=== PATIENT | female | born 1945 | race Caucasian/White ===

== ENCOUNTER 2016-12-19 07:31 | Inpatient (IN) | payer OTHER, BC ==
[~2016-12-19] VITALS: Ht 165.1 cm; Wt 80.5 kg
[~2016-12-19 07:31] MED LIST: ADULT LOW STREN81 M2 PO; ALBUTEROL17 GM IH; ALPRAZOLAM0.25 M2 PO; Amoxicillin PO; Cardizem CD,Cartia X PO; DILTIAZEM 24HR240 MG PO; DIOVAN HCT 31 TABLE1 PO; EQL CALCIUM PO; FENOFIBRATE160 M1 PO; FOLIC ACID1 MG PO; GLUCOPHAGE500 MG PO; KEFLEX500 MG PO; LASIX20 MG PO; LEVAQUIN500 MG PO; LIPITOR40 MG PO; LOFIBRA,TRIGLI160 MG PO; METFORMIN HCL500 MG PO; METHOTREXATE2.5 MG PO; METOPROLOL SUCC25 MG PO; NORVASC10 MG PO; PANTOPRAZOLE SO40 MG PO; PLAVIX75 MG PO; PRADAXA150 MG PO; PROTONIX40 MG PO; RANITIDINE HCL150 M1 PO; SPIRIVA1 INHALATI IH; TOPROL XL100 MG PO; TRAMADOL HCL50 MG PO; TYLENOL325 MG PR; VITAMIN D35000 UNIT PO; ZESTORETIC,P1 TABLE2 PO
[2016-12-19 08:39] LABS: ADD MIUA? YES; BILIRUBIN NEGATIVE; BLOOD NEGATIVE; COLOR YELLOW ((YELLOW)); GLUCOSE (STRIP) NEGATIVE; KETONES NEGATIVE; LEUKOCYTES MODERATE; NITRITE POSITIVE; PROTEIN (STRIP) NEGATIVE; SPECIFIC GRAVITY 1.011 (1.000-1.030); UROBILINOGEN 0.2 MG/DL (0.2-1.0)
[2016-12-19 08:53] LABS: HEMATOCRIT 35.2 % (36.0-46.0); MCH 29.5 PG (29.0-34.0); MCHC 32.4 G/DL (30.0-36.0); MEAN PLAT.VOLUME 9.3 uM^3 (9.5-12.4); PLATELET COUNT 267 K/uL (156-360); RBC DIS.WIDTH-CV 16.7 % (11.8-14.6); RBC DIS.WIDTH-SD 53.5 % (39-53); RED BLOOD COUNT 3.87 M/uL (3.80-5.20); WHITE BLOOD COUNT 10.5 K/uL (4.1-10.2)
[2016-12-19 09:03] LABS: INTER. NORMALIZED RATIO 1.1; PROTHROMBIN TIME 11.1 (9.2-11.2); PTT 28.1 (25-32)
[2016-12-19 09:04] LABS: CHLORIDE 103 mEq/L (99-109); POTASSIUM 4.8 mEq/L (3.7-5.4)
[2016-12-19 09:05] LABS: SODIUM 138 mEq/L (136-147)
[2016-12-19 09:06] LABS: GLUCOSE 146 mg/dL (70-99)
[2016-12-19 09:08] LABS: ANION GAP 7 MEQ/L (2-14)
[2016-12-19 09:10] LABS: GFR ESTIMATE (CALCULATED) 58 mL/min/
[2016-12-19 09:11] LABS: UREA NITROGEN (BUN) 32 mg/dL (9-23)
[2016-12-19 09:14] LABS: TROP-I INTERPRETATION NEGATIVE; TROPONIN-I 0.01 ng/mL (0.0-0.30)
[2016-12-19] MEDS ORDERED: FOLIC ACID1 MG PO (09:25)
[2016-12-19] MEDS ORDERED: DIOVAN HCT 31 TABLE1 PO (09:25)
[2016-12-19] MEDS ORDERED: LO-DOSE ASPIRIN81 M2 PO (09:25)
[2016-12-19] MEDS ORDERED: ADVAIR 100/501 DISK IH (09:25)
[2016-12-19] MEDS ORDERED: METHOTREXATE2.5 MG PO (09:26)
[2016-12-19] MEDS ORDERED: LIPITOR40 MG PO (09:26)
[2016-12-19] MEDS ORDERED: PROAIR HFA8.5 GM IH (09:27)
[2016-12-19] MEDS ORDERED: MONTELUKAST SOD10 MG PO (09:27)
[2016-12-19] MEDS ORDERED: SPIRIVA1 INHALATI IH (09:28)
[2016-12-19] MEDS ORDERED: TYLENOL ARTHRI650 MG PO (09:28)
[2016-12-19] MEDS ORDERED: CARDIZEM CD,CA240 MG PO (09:29)
[2016-12-19] MEDS ORDERED: FLUTICASONE PRO60 ML TP (09:29)
[2016-12-19] MEDS ORDERED: ESCITALOPRAM OX10 MG PO (09:29)
[2016-12-19] MEDS ORDERED: ELIQUIS5 MG PO (09:30)
[2016-12-19] MEDS ORDERED: PROTONIX40 MG PO (09:30)
[2016-12-19] MEDS ORDERED: METOPROLOL SUC100 MG PO (09:30)
[2016-12-19] MEDS ORDERED: METFORMIN HCL500 MG PO (09:31)
[2016-12-19] MEDS ORDERED: FORTESTA60 GM TD (09:31)
[2016-12-19 09:49] LABS: MUCUS NONE SEEN /LPF
[2016-12-19 09:53] LABS: RED BLOOD CELLS 0-5 /HPF (0-5)
[2016-12-19 09:54] LABS: BACTERIA 2+ /HPF; EPITHELIAL CELLS RARE /HPF; WHITE BLOOD CELLS 40-50 /HPF (0-5); WHITE CELL CASTS 0-5 /LPF
[2016-12-19] MEDS ORDERED: FORTEO20 MICROGR SC (10:29)
[2016-12-19] MEDS ORDERED: SPIRIVA RESPIMAT4 GM IH (10:35)
[2016-12-19] MEDS ORDERED: ERGOCALCIF50000 UNIT PO (10:37)
[2016-12-19 15:41] LABS: POINT-OF-CARE METER ID UU14149397
[2016-12-19 18:10] VITALS: BP 103/56
[2016-12-19 20:10] VITALS: BP 162/70
[2016-12-19 21:37] LABS: POINT-OF-CARE METER ID UU14149397
[2016-12-19 23:59] VITALS: BP 140/63
[2016-12-20 04:30] VITALS: BP 137/65
[2016-12-20 06:31] LABS: POINT-OF-CARE METER ID UU14188577
[2016-12-20 07:11] LABS: HEMATOCRIT 30.4 % (36.0-46.0); MCH 30.7 PG (29.0-34.0); MCHC 32.6 G/DL (30.0-36.0); MCV 94.1 FL (83-99); MEAN PLAT.VOLUME 9.9 uM^3 (9.5-12.4); PLATELET COUNT 230 K/uL (156-360); RBC DIS.WIDTH-CV 16.8 % (11.8-14.6); RBC DIS.WIDTH-SD 57.1 % (39-53); RED BLOOD COUNT 3.23 M/uL (3.80-5.20); WHITE BLOOD COUNT 6.5 K/uL (4.1-10.2)
[2016-12-20 07:52] LABS: ANION GAP 11 MEQ/L (2-14); CHLORIDE 102 MEQ/L (99-109); GFR ESTIMATE (CALCULATED) > 59 mL/min/; GLUCOSE 110 mg/dL (70-99); POTASSIUM 4.4 MEQ/L (3.7-5.4); SAMPLE HEMOLYSIS CHECK 0; SAMPLE ICTERIC CHECK 0; SAMPLE LIPEMIA CHECK 0; SODIUM 134 MEQ/L (136-147); UREA NITROGEN (BUN) 21 mg/dL (9-23)
[2016-12-20 08:04] VITALS: BP 123/60
[2016-12-20 11:49] VITALS: BP 128/66
[2016-12-20 11:51] LABS: POINT-OF-CARE METER ID UU14188577
[2016-12-20 15:49] VITALS: BP 118/59
[2016-12-20 20:00] VITALS: BP 141/61
[2016-12-20 21:44] LABS: POINT-OF-CARE METER ID UU14188577
[2016-12-20 23:53] VITALS: BP 128/63
[2016-12-21] VITALS (7 sets, daily range): BP systolic 117–150; BP diastolic 59–66
[2016-12-21 06:29] LABS: POINT-OF-CARE METER ID UU14149397
[2016-12-21 07:34] LABS: HEMATOCRIT 29.8 % (36.0-46.0); MCH 30.2 PG (29.0-34.0); MCHC 32.6 G/DL (30.0-36.0); MCV 92.8 FL (83-99); MEAN PLAT.VOLUME 9.9 uM^3 (9.5-12.4); PLATELET COUNT 199 K/uL (156-360); RBC DIS.WIDTH-CV 16.7 % (11.8-14.6); RBC DIS.WIDTH-SD 55.6 % (39-53); RED BLOOD COUNT 3.21 M/uL (3.80-5.20); WHITE BLOOD COUNT 9.8 K/uL (4.1-10.2)
[2016-12-21 07:52] LABS: ANION GAP 8 MEQ/L (2-14); CHLORIDE 100 MEQ/L (99-109); GFR ESTIMATE (CALCULATED) > 59 mL/min/; GLUCOSE 127 mg/dL (70-99); POTASSIUM 4.8 MEQ/L (3.7-5.4); SAMPLE HEMOLYSIS CHECK 0; SAMPLE ICTERIC CHECK 0; SAMPLE LIPEMIA CHECK 0; SODIUM 136 MEQ/L (136-147); UREA NITROGEN (BUN) 13 mg/dL (9-23)
[2016-12-21 11:57] LABS: POINT-OF-CARE METER ID UU14149397
[2016-12-21 15:51] LABS: POINT-OF-CARE METER ID UU14149397
[2016-12-22 04:03] VITALS: BP 131/62
[2016-12-22 06:35] LABS: POINT-OF-CARE METER ID UU14188577
[2016-12-22 07:09] LABS: HEMATOCRIT 29.4 % (36.0-46.0); MCH 29.3 PG (29.0-34.0); MCV 91.6 FL (83-99); MEAN PLAT.VOLUME 9.7 uM^3 (9.5-12.4); PLATELET COUNT 228 K/uL (156-360); RBC DIS.WIDTH-CV 16.6 % (11.8-14.6); RED BLOOD COUNT 3.21 M/uL (3.80-5.20)
[2016-12-22 07:11] LABS: WHITE BLOOD COUNT 6.6 K/uL (4.1-10.2)
[2016-12-22 07:49] LABS: ANION GAP 10 MEQ/L (2-14); CHLORIDE 101 MEQ/L (99-109); GFR ESTIMATE (CALCULATED) > 59 mL/min/; GLUCOSE 121 mg/dL (70-99); POTASSIUM 4.1 MEQ/L (3.7-5.4); SAMPLE HEMOLYSIS CHECK 0; SAMPLE ICTERIC CHECK 0; SAMPLE LIPEMIA CHECK 0; SODIUM 137 MEQ/L (136-147); UREA NITROGEN (BUN) 16 mg/dL (9-23)
[2016-12-22 10:10] LABS: POINT-OF-CARE METER ID UU13113675
[2016-12-22 11:43] LABS: HEMATOCRIT 28.9 % (36.0-46.0)
[2016-12-22 16:37] LABS: MCV 93.2 FL (83-99)
[2016-12-22 20:30] VITALS: BP 100/58
[2016-12-23] VITALS (11 sets, daily range): BP systolic 90–128; BP diastolic 50–79
[2016-12-23 06:56] LABS: HEMATOCRIT 30.3 % (36.0-46.0); MCH 30.6 PG (29.0-34.0); MCV 92.7 FL (83-99); PLATELET COUNT 237 K/uL (156-360); RBC DIS.WIDTH-CV 15.7 % (11.8-14.6); RBC DIS.WIDTH-SD 52.6 % (39-53); RED BLOOD COUNT 3.27 M/uL (3.80-5.20); WHITE BLOOD COUNT 7.3 K/uL (4.1-10.2)
[2016-12-23 07:15] LABS: ANION GAP 8 MEQ/L (2-14); CHLORIDE 102 MEQ/L (99-109); GFR ESTIMATE (CALCULATED) 58 mL/min/; GLUCOSE 131 mg/dL (70-99); POTASSIUM 4.4 MEQ/L (3.7-5.4); SAMPLE HEMOLYSIS CHECK 0; SAMPLE ICTERIC CHECK 0; SAMPLE LIPEMIA CHECK 0; SODIUM 134 MEQ/L (136-147)
[2016-12-23 07:18] LABS: UREA NITROGEN (BUN) 27 mg/dL (9-23)
[2016-12-23 12:17] LABS: POINT-OF-CARE METER ID UU14188577
[2016-12-23 21:47] LABS: POINT-OF-CARE METER ID UU14188577
[2016-12-24 03:37] VITALS: BP 134/60
[2016-12-24 06:57] LABS: POINT-OF-CARE METER ID UU14149397
[2016-12-24 08:18] VITALS: BP 120/57
[2016-12-24 08:56] LABS: BASOPHIL COUNT 0.1 K/uL (0-0.1); EOSINOPHIL COUNT 0.5 K/uL (0-0.3); HEMATOCRIT 30.2 % (36.0-46.0); IMMATURE GRANULOCYTE (%) 0.3 % (0.0-0.7); INSTRUMENT ABS NEUTROPHIL CT 3.7 K/uL; LYMPHOCYTE COUNT 1.3 K/uL (1.0-2.8); MCH 30.8 PG (29.0-34.0); MCHC 32.8 G/DL (30.0-36.0); MCV 94.1 FL (83-99); MEAN PLAT.VOLUME 9.5 uM^3 (9.5-12.4); MONOCYTE COUNT 0.3 K/uL (0-0.8); NEUTROPHIL (%) 63.4 % (45-76); NEUTROPHIL COUNT 3.7 K/uL (1.8-6.4); PLATELET COUNT 250 K/uL (156-360); RBC DIS.WIDTH-CV 16.2 % (11.8-14.6); RBC DIS.WIDTH-SD 55.1 % (39-53); RED BLOOD COUNT 3.21 M/uL (3.80-5.20); WHITE BLOOD COUNT 5.8 K/uL (4.1-10.2)
[2016-12-24 09:21] LABS: ALKALINE PHOSPHATASE 46 IU/L (3-129); ANION GAP 10 MEQ/L (2-14); CHLORIDE 104 MEQ/L (99-109); GFR ESTIMATE (CALCULATED) 58 mL/min/; GLUCOSE 118 mg/dL (70-99); POTASSIUM 4.4 MEQ/L (3.7-5.4); SAMPLE HEMOLYSIS CHECK 0; SAMPLE ICTERIC CHECK 0; SAMPLE LIPEMIA CHECK 0; SODIUM 138 MEQ/L (136-147); TOTAL BILIRUBIN 0.7 MG/DL (0.0-1.0); UREA NITROGEN (BUN) 31 mg/dL (9-23)
[2016-12-24] MEDS ORDERED: VALSARTAN160 MG PO (09:45)
[2016-12-24] MEDS ORDERED: CEFTIN500 MG PO (09:45)
[2016-12-24] MEDS ORDERED: ENDOCET 5-3251 EACH PO (09:46)
[2016-12-24] MEDS ORDERED: BISACODYL5 MG PO (09:46)
[2016-12-24] MEDS ORDERED: DOCUSATE SODIU100 MG PO (09:46)
[2016-12-24] MEDS ORDERED: LIDOCAINE700 MG TD (09:47)
[2016-12-24] MEDS ORDERED: NOVOLOG PE100 UNITS/ SC (09:47)
[2016-12-24] MEDS ORDERED: POLYETHYLENE GL17 GM PO (09:47)
[2016-12-24 12:05] LABS: POINT-OF-CARE METER ID UU14188577
[2016-12-24 12:15] VITALS: BP 117/80
[2016-12-25] MEDS ORDERED: METFORMIN HCL1000 MG PO (11:23)
== END 2016-12-24 14:54 | DRG 480 ==
LOC: EME 07:31 → 3EAST 10:10 → EDOF 10:10 → 3EAST 14:13
PROVIDERS: Anesthesiology; Hospitalist; Internal Medicine; Nurse Practitioner Family; Orthopaedic Surgery
PROC: 0QHB06Z Insertion of Intramedullary Internal Fixation Device into Right Lower Femur, Open Approach (ICD-10-PCS; principal; 2016-12-22)
PROC: 30233N1 Transfusion of Nonautologous Red Blood Cells into Peripheral Vein, Percutaneous Approach (ICD-10-PCS; 2016-12-22)
DX: S72.141A Displaced intertrochanteric fracture of right femur, initial encounter for closed fracture (principal); J96.01 Acute respiratory failure with hypoxia; N39.0 Urinary tract infection, site not specified; J44.9 Chronic obstructive pulmonary disease, unspecified; I48.0 Paroxysmal atrial fibrillation; D62 Acute posthemorrhagic anemia; I10 Essential (primary) hypertension; I48.2 Chronic atrial fibrillation; E11.9 Type 2 diabetes mellitus without complications; I25.10 Atherosclerotic heart disease of native coronary artery without angina pectoris; E78.5 Hyperlipidemia, unspecified; W06.XXXA Fall from bed, initial encounter; M06.9 Rheumatoid arthritis, unspecified; B96.20 Unspecified Escherichia coli [E. coli] as the cause of diseases classified elsewhere; K59.00 Constipation, unspecified; Z95.5 Presence of coronary angioplasty implant and graft; Z90.49 Acquired absence of other specified parts of digestive tract; Z68.29 Body mass index [BMI] 29.0-29.9, adult; Z87.891 Personal history of nicotine dependence; Z79.899 Other long term (current) drug therapy; Z82.49 Family history of ischemic heart disease and other diseases of the circulatory system
CPT/HCPCS: 71010; 73502; 76000; 80048; 80053; 81003; 82948; 83880; 84484; 85014; 85018; 85025; 85027; 85610; 85730; 86900; 86901; 86920; 87077; 87086; 87186; 93005; 94640; 94640 76; 94799; 97530 GO; 99202; 99281; 99285; C1713; J0330; J0690; J0696; J1100; J1170; J1644; J1815; J1885; J1940; J2250; J2270; J2405; J2710; J3010; J7030; J7050; J8610; P9016; P9045

== ENCOUNTER 2016-12-24 11:28 | Inpatient (IN) | payer OTHER, BC ==
[~2016-12-24] VITALS: Ht 157.5 cm; Wt 79.5 kg
[~2016-12-24 11:28] MED LIST changes: +ADVAIR 100/501 DISK IH; +BISACODYL5 MG PO; +CARDIZEM CD,CA240 MG PO; +CEFTIN500 MG PO; +DOCUSATE SODIU100 MG PO; +ELIQUIS5 MG PO; +ENDOCET 5-3251 EACH PO; +ERGOCALCIF50000 UNIT PO; +ESCITALOPRAM OX10 MG PO; +FLUTICASONE PRO60 ML TP; +FORTEO20 MICROGR SC; +FORTESTA60 GM TD; +LIDOCAINE700 MG TD; +LO-DOSE ASPIRIN81 M2 PO; +METOPROLOL SUC100 MG PO; +MONTELUKAST SOD10 MG PO; +NOVOLOG PE100 UNITS/ SC; +POLYETHYLENE GL17 GM PO; +PROAIR HFA8.5 GM IH; +SPIRIVA RESPIMAT4 GM IH; +TYLENOL ARTHRI650 MG PO; +VALSARTAN160 MG PO
[2016-12-24 17:11] VITALS: BP 120/69
[2016-12-24 17:14] LABS: POINT-OF-CARE METER ID UU13113720
[2016-12-24 22:01] LABS: POINT-OF-CARE METER ID UU13113720
[2016-12-25 00:08] VITALS: BP 122/61
[2016-12-25 06:13] VITALS: BP 133/72
[2016-12-25 07:16] LABS: ALKALINE PHOSPHATASE 55 IU/L (3-129); ANION GAP 10 MEQ/L (2-14); CHLORIDE 108 MEQ/L (99-109); GFR ESTIMATE (CALCULATED) > 59 mL/min/; GLUCOSE 127 mg/dL (70-99); POTASSIUM 4.2 MEQ/L (3.7-5.4); SAMPLE HEMOLYSIS CHECK 0; SAMPLE ICTERIC CHECK 0; SAMPLE LIPEMIA CHECK 0; SODIUM 141 MEQ/L (136-147); UREA NITROGEN (BUN) 26 mg/dL (9-23)
[2016-12-25 07:23] LABS: HEMATOCRIT 28.4 % (36.0-46.0); MCH 30.8 PG (29.0-34.0); MCHC 33.5 G/DL (30.0-36.0); MCV 92.2 FL (83-99); MEAN PLAT.VOLUME 9.6 uM^3 (9.5-12.4); PLATELET COUNT 241 K/uL (156-360); RBC DIS.WIDTH-CV 16.2 % (11.8-14.6); RBC DIS.WIDTH-SD 53.5 % (39-53); RED BLOOD COUNT 3.08 M/uL (3.80-5.20); TOTAL BILIRUBIN 0.9 MG/DL (0.0-1.0); WHITE BLOOD COUNT 4.9 K/uL (4.1-10.2)
[2016-12-25 07:30] LABS: POINT-OF-CARE METER ID UU13113720; POINT-OF-CARE USER ID AHSSSJB31
[2016-12-25] MEDS ORDERED: METFORMIN HCL1000 MG PO (11:23)
[2016-12-25 11:54] LABS: POINT-OF-CARE METER ID UU13113720; POINT-OF-CARE USER ID AHSSSJB31
[2016-12-25 15:34] VITALS: BP 144/67
[2016-12-25 16:18] LABS: POINT-OF-CARE METER ID UU13113720
[2016-12-25 21:20] LABS: POINT-OF-CARE METER ID UU13113720
[2016-12-26 05:05] VITALS: BP 139/64
[2016-12-26 06:54] LABS: POINT-OF-CARE METER ID UU13113720
[2016-12-26 11:17] LABS: POINT-OF-CARE METER ID UU13113720
[2016-12-26 15:11] VITALS: BP 124/73
[2016-12-26 16:19] LABS: POINT-OF-CARE METER ID UU13113720; POINT-OF-CARE USER ID ENVGAF
[2016-12-26 21:09] LABS: POINT-OF-CARE METER ID UU14174215
[2016-12-27 05:33] VITALS: BP 140/66
[2016-12-27 06:25] LABS: POINT-OF-CARE METER ID UU14174215; POINT-OF-CARE USER ID ENVGAF
[2016-12-27 11:39] LABS: POINT-OF-CARE METER ID UU14174215; POINT-OF-CARE USER ID ENVGAF
[2016-12-27 15:34] VITALS: BP 107/63
[2016-12-27 16:29] LABS: POINT-OF-CARE METER ID UU14174215
[2016-12-27 21:40] LABS: POINT-OF-CARE METER ID UU14174215
[2016-12-28 04:48] VITALS: BP 137/73
[2016-12-28 07:40] LABS: POINT-OF-CARE METER ID UU14174215
[2016-12-28 11:40] LABS: POINT-OF-CARE METER ID UU14174215
[2016-12-28 15:27] VITALS: BP 124/65
[2016-12-28 16:20] LABS: POINT-OF-CARE METER ID UU14174215
[2016-12-28 21:29] LABS: POINT-OF-CARE METER ID UU13113720
[2016-12-29 05:13] VITALS: BP 123/60
[2016-12-29 07:56] LABS: POINT-OF-CARE METER ID UU14174215; POINT-OF-CARE USER ID AHSSSJB31
[2016-12-29 11:44] LABS: POINT-OF-CARE METER ID UU14174215; POINT-OF-CARE USER ID AHSSSJB31
[2016-12-29 15:57] VITALS: BP 135/65
[2016-12-29 16:25] LABS: POINT-OF-CARE METER ID UU14174215
[2016-12-29 21:20] LABS: POINT-OF-CARE METER ID UU13113720
[2016-12-30 05:46] VITALS: BP 134/64
[2016-12-30 06:33] LABS: POINT-OF-CARE METER ID UU13113720
[2016-12-30 11:27] LABS: POINT-OF-CARE METER ID UU14174215; POINT-OF-CARE USER ID ENVGAF
[2016-12-30 12:00] LABS: POINT-OF-CARE METER ID UU14174215; POINT-OF-CARE USER ID ENVGAF
[2016-12-30 15:50] VITALS: BP 102/55
[2016-12-30 16:25] LABS: POINT-OF-CARE METER ID UU13113720
[2016-12-30 21:25] LABS: POINT-OF-CARE METER ID UU13113720
[2016-12-31 05:14] VITALS: BP 92/50
[2016-12-31 06:38] LABS: POINT-OF-CARE METER ID UU13113720; POINT-OF-CARE USER ID ENVGAF
[2016-12-31 11:32] LABS: POINT-OF-CARE METER ID UU13113720; POINT-OF-CARE USER ID ENVGAF
[2016-12-31 13:12] VITALS: BP 83/44
[2016-12-31 14:14] LABS: MCH 29.8 PG (29.0-34.0); MCHC 30.9 G/DL (30.0-36.0); MEAN PLAT.VOLUME 9.4 uM^3 (9.5-12.4); RBC DIS.WIDTH-CV 17.6 % (11.8-14.6); RBC DIS.WIDTH-SD 60.1 % (39-53); RED BLOOD COUNT 3.52 M/uL (3.80-5.20)
[2016-12-31 14:18] LABS: MCV 96.6 FL (83-99); PLATELET COUNT 475 K/uL (156-360)
[2016-12-31 14:53] LABS: ANION GAP 11 MEQ/L (2-14); CHLORIDE 101 MEQ/L (99-109); POTASSIUM 4.9 MEQ/L (3.7-5.4); SAMPLE HEMOLYSIS CHECK 0; SAMPLE ICTERIC CHECK 0; SAMPLE LIPEMIA CHECK 0; SODIUM 137 MEQ/L (136-147)
[2016-12-31 15:03] LABS: GFR ESTIMATE (CALCULATED) 47 mL/min/; GLUCOSE 129 mg/dL (70-99); UREA NITROGEN (BUN) 24 mg/dL (9-23)
[2016-12-31 15:34] VITALS: BP 108/69
[2016-12-31 16:21] LABS: POINT-OF-CARE METER ID UU14174215
[2016-12-31 21:32] LABS: POINT-OF-CARE METER ID UU13113720
[2017-01-01 05:33] VITALS: BP 124/60
[2017-01-01 06:57] LABS: POINT-OF-CARE METER ID UU13113720; POINT-OF-CARE USER ID ENVGAF
[2017-01-01 08:00] VITALS: BP 93/61
[2017-01-01 11:25] LABS: POINT-OF-CARE METER ID UU13113720
[2017-01-01 15:30] VITALS: BP 118/56
[2017-01-01 17:11] LABS: POINT-OF-CARE METER ID UU13113720
[2017-01-01 20:06] VITALS: BP 142/65
[2017-01-01 21:09] LABS: POINT-OF-CARE METER ID UU13113720
[2017-01-02 05:56] VITALS: BP 134/63
[2017-01-02 06:41] LABS: POINT-OF-CARE METER ID UU13113720; POINT-OF-CARE USER ID ENVGAF
[2017-01-02 09:03] VITALS: BP 143/65
[2017-01-02 11:20] LABS: POINT-OF-CARE METER ID UU13113720; POINT-OF-CARE USER ID ENVGAF
[2017-01-02 15:53] VITALS: BP 144/63
[2017-01-02 21:41] LABS: POINT-OF-CARE METER ID UU13113720
[2017-01-03 06:49] VITALS: BP 131/60
[2017-01-03 07:09] LABS: POINT-OF-CARE METER ID UU14174215
[2017-01-03 11:58] LABS: POINT-OF-CARE METER ID UU13113720
[2017-01-03 13:24] LABS: MCH 30.4 PG (29.0-34.0); MCHC 31.7 G/DL (30.0-36.0); MCV 95.9 FL (83-99); MEAN PLAT.VOLUME 9.5 uM^3 (9.5-12.4); PLATELET COUNT 387 K/uL (156-360); RBC DIS.WIDTH-CV 18.4 % (11.8-14.6); RBC DIS.WIDTH-SD 63.9 % (39-53); RED BLOOD COUNT 3.65 M/uL (3.80-5.20); WHITE BLOOD COUNT 10.3 K/uL (4.1-10.2)
[2017-01-03 13:56] LABS: ALKALINE PHOSPHATASE 104 IU/L (3-129); ANION GAP 12 MEQ/L (2-14); CHLORIDE 106 MEQ/L (99-109); GFR ESTIMATE (CALCULATED) > 59 mL/min/; GLUCOSE 87 mg/dL (70-99); POTASSIUM 4.8 MEQ/L (3.7-5.4); SAMPLE HEMOLYSIS CHECK 0; SAMPLE ICTERIC CHECK 0; SAMPLE LIPEMIA CHECK 0; SODIUM 140 MEQ/L (136-147); TOTAL BILIRUBIN 1.3 MG/DL (0.0-1.0); UREA NITROGEN (BUN) 10 mg/dL (9-23)
[2017-01-03 16:41] LABS: POINT-OF-CARE METER ID UU13113720
[2017-01-03 19:22] VITALS: BP 146/67
[2017-01-03 21:06] LABS: POINT-OF-CARE METER ID UU13113720
[2017-01-04 05:24] VITALS: BP 132/58
[2017-01-04 06:38] LABS: POINT-OF-CARE METER ID UU13113720; POINT-OF-CARE USER ID ENVGAF
[2017-01-04 11:14] LABS: POINT-OF-CARE METER ID UU13113720
[2017-01-04 15:34] VITALS: BP 146/80
[2017-01-04 16:20] LABS: POINT-OF-CARE METER ID UU13113720; POINT-OF-CARE USER ID ENVGAF
[2017-01-04 21:15] LABS: POINT-OF-CARE METER ID UU13113720
[2017-01-05 05:19] VITALS: BP 137/63
[2017-01-05 06:42] LABS: POINT-OF-CARE METER ID UU13113720; POINT-OF-CARE USER ID ENVGAF
[2017-01-05 11:27] LABS: POINT-OF-CARE METER ID UU13113720
[2017-01-05 15:13] VITALS: BP 103/51
[2017-01-05 16:09] LABS: POINT-OF-CARE METER ID UU13113720
[2017-01-05 21:10] LABS: POINT-OF-CARE METER ID UU14174215
[2017-01-06 04:38] VITALS: BP 136/64
[2017-01-06 07:02] LABS: POINT-OF-CARE METER ID UU14174215
[2017-01-06 11:23] LABS: POINT-OF-CARE METER ID UU13113720; POINT-OF-CARE USER ID AHSSSJB31
[2017-01-06 11:54] LABS: POINT-OF-CARE METER ID UU14174215
[2017-01-06 15:26] VITALS: BP 120/57
[2017-01-06 16:30] LABS: POINT-OF-CARE METER ID UU13113720
[2017-01-06 21:04] LABS: POINT-OF-CARE METER ID UU13113720; POINT-OF-CARE USER ID ENVGAF
[2017-01-07 05:08] VITALS: BP 137/64
[2017-01-07 07:15] LABS: POINT-OF-CARE METER ID UU14174215
[2017-01-07 11:42] LABS: POINT-OF-CARE METER ID UU13113720; POINT-OF-CARE USER ID AHSSSJB31
[2017-01-07 17:05] LABS: POINT-OF-CARE METER ID UU13113720
[2017-01-08 05:58] VITALS: BP 150/62
[2017-01-08 08:16] LABS: POINT-OF-CARE METER ID UU13113720
[2017-01-08 11:25] LABS: POINT-OF-CARE METER ID UU13113720
[2017-01-08 16:02] LABS: POINT-OF-CARE METER ID UU14174215
[2017-01-08 16:14] VITALS: BP 136/63
[2017-01-08 21:38] LABS: POINT-OF-CARE METER ID UU13113720
[2017-01-09 04:44] VITALS: BP 134/65
[2017-01-09 06:59] LABS: POINT-OF-CARE METER ID UU13113720; POINT-OF-CARE USER ID ENVGAF
[2017-01-09 11:11] LABS: POINT-OF-CARE METER ID UU13113720
[2017-01-09] MEDS ORDERED: POLYETHYLENE GL17 GM PO (11:17)
[2017-01-09] MEDS ORDERED: DOCUSATE SODIU100 MG PO (11:17)
[2017-01-09] MEDS ORDERED: HYDROCHLOROTHIA25 MG PO (11:17)
[2017-01-09] MEDS ORDERED: TYLENOL REGULA325 MG PO (11:17)
[2017-01-09] MEDS ORDERED: METFORMIN HCL500 MG PO (11:17)
[2017-01-09] MEDS ORDERED: ENDOCET 5-3251 EACH PO (11:17)
[2017-01-09] MEDS ORDERED: THERAGRAN1 TABLET PO (11:17)
[2017-01-09] MEDS ORDERED: PREDNISONE10 MG PO (11:17)
[2017-01-09] MEDS ORDERED: VALSARTAN160 MG PO (11:17)
== END 2017-01-09 12:52 | DRG 560 ==
LOC: 3WEST 11:28
PROVIDERS: Internal Medicine; Physical Medicine & Rehabilitation Pain Medicine; Psychiatry & Neurology Neurology
PROC: F07M0ZZ Range of Motion and Joint Mobility Treatment of Musculoskeletal System - Whole Body (ICD-10-PCS; principal; 2016-12-24)
DX: S72.141D Displaced intertrochanteric fracture of right femur, subsequent encounter for closed fracture with routine healing (principal); I95.9 Hypotension, unspecified; E87.2 Acidosis; E11.9 Type 2 diabetes mellitus without complications; E88.09 Other disorders of plasma-protein metabolism, not elsewhere classified; I48.0 Paroxysmal atrial fibrillation; J44.1 Chronic obstructive pulmonary disease with (acute) exacerbation; N39.0 Urinary tract infection, site not specified; E77.8 Other disorders of glycoprotein metabolism; M81.0 Age-related osteoporosis without current pathological fracture; W06.XXXD Fall from bed, subsequent encounter; D62 Acute posthemorrhagic anemia; E78.5 Hyperlipidemia, unspecified; E86.0 Dehydration; G89.18 Other acute postprocedural pain; I10 Essential (primary) hypertension; I25.10 Atherosclerotic heart disease of native coronary artery without angina pectoris; M06.9 Rheumatoid arthritis, unspecified; M19.90 Unspecified osteoarthritis, unspecified site; M70.62 Trochanteric bursitis, left hip; N64.9 Disorder of breast, unspecified; R32 Unspecified urinary incontinence; Z79.01 Long term (current) use of anticoagulants; Z79.899 Other long term (current) drug therapy; Z86.010 Personal history of colon polyps; Z87.891 Personal history of nicotine dependence; Z95.5 Presence of coronary angioplasty implant and graft; J98.11 Atelectasis; Z87.81 Personal history of (healed) traumatic fracture; T46.5X5A Adverse effect of other antihypertensive drugs, initial encounter; T50.2X5A Adverse effect of carbonic-anhydrase inhibitors, benzothiadiazides and other diuretics, initial encounter; M25.512 Pain in left shoulder; M25.552 Pain in left hip; R26.9 Unspecified abnormalities of gait and mobility; Z98.890 Other specified postprocedural states; Z79.84 Long term (current) use of oral hypoglycemic drugs
CPT/HCPCS: 71010; 73502; 73552; 76604; 80048; 80053; 82948; 83605; 85027; 87040; 87086; 93005; 93970; 94640 76; 94799; 97110 GO; 97530 GP; 99202; J0696; J7030; J7050; J7512; J8610